=== PATIENT | female | born 1965 | race Caucasian/White ===

== ENCOUNTER → 2016-07-30 | Outpatient (CLI) | payer OTHER, BC ==
[~2016-07-30] MED LIST: ANASTROZOLE1 MG PO; CALCIUM 500 MG1 EACH PO; COCONUT OIL1000 MG PO; CYCLOBENZAPRINE5 MG PO; FLUOXETINE HCL20 M1 PO; HYDROCODON-ACE1 EAC7 PO; MS CONTIN,ORAMO60 MG PO; MS CONTIN100 MG PO; MYRBETRIQ25 MG PO; OMEPRAZOLE20 MG PO; ONDANSETRON HCL4 MG PO; PROBIOTIC1 EAC1 PO; VITAMIN D2000 UNIT PO; WELLBUTRIN75 MG PO
== END | disposition home or self-care (01) ==
LOC: RES 07-23 10:00
DX: R94.2 Abnormal results of pulmonary function studies (principal); J45.909 Unspecified asthma, uncomplicated; R06.02 Shortness of breath
CPT/HCPCS: 94060; 94726; 94729

== ENCOUNTER 2017-06-23 12:34 | Emergency (ER) | payer OTHER, BC ==
[~2017-06-23] VITALS: Ht 180.3 cm; Wt 90.7 kg
[2017-06-23 14:18] LABS: HEMATOCRIT 41.8 % (36.0-46.0); HEMOGLOBIN 14.1 G/DL (11.9-15.5); MCH 30.5 PG (29.0-34.0); MCHC 33.7 G/DL (30.0-36.0); MCV 90.5 FL (83-99); PLATELET COUNT 197 K/uL (156-360); RBC DIS.WIDTH-CV 12.4 % (11.8-14.6); RBC DIS.WIDTH-SD 40.8 % (39-53); RED BLOOD COUNT 4.62 M/uL (3.80-5.20); WHITE BLOOD COUNT 9.1 K/uL (4.1-10.2)
[2017-06-23 14:28] LABS: INTER. NORMALIZED RATIO 1.1
[2017-06-23 14:30] LABS: PTT 24.9 SEC (25-37)
[2017-06-23 14:31] LABS: ALBUMIN 4.1 g/dL (3.2-4.8); CHLORIDE 104 mEq/L (99-109); POTASSIUM 3.8 mEq/L (3.7-5.4); SODIUM 139 mEq/L (136-147)
[2017-06-23 14:33] LABS: GLUCOSE 86 mg/dL (70-99); TOTAL PROTEIN 7.4 g/dL (6.4-8.3)
[2017-06-23 14:35] LABS: TOTAL BILIRUBIN 1.2 mg/dL (0.0-1.0)
[2017-06-23 14:37] LABS: ALKALINE PHOSPHATASE 91 IU/L (3-129); CREATININE 0.8 mg/dL (0.6-1.3); GFR ESTIMATE (CALCULATED) > 59 mL/min/
[2017-06-23 14:38] LABS: UREA NITROGEN (BUN) 8 mg/dL (9-23)
[2017-06-23 14:39] LABS: AST (GOT) 35 IU/L (2-34)
[2017-06-23 14:40] LABS: ALT (GPT) 39 IU/L (3-49)
[2017-06-23 15:04] LABS: APPEARANCE CLEAR ((CLEAR)); BILIRUBIN NEGATIVE; BLOOD SMALL; COLOR YELLOW ((YELLOW)); GLUCOSE (STRIP) NEGATIVE; KETONES NEGATIVE; LEUKOCYTES SMALL; NITRITE NEGATIVE; PROTEIN (STRIP) NEGATIVE; SPECIFIC GRAVITY 1.013 (1.000-1.030); UROBILINOGEN 0.2 MG/DL (0.2-1.0)
[2017-06-23 15:11] LABS: BACTERIA NONE SEEN /HPF; EPITHELIAL CELLS RARE /HPF; MUCUS TRACE /LPF; RED BLOOD CELLS 0-5 /HPF (0-5); UCUL ADDED? YES
[2017-06-23] MEDS ORDERED: LEVAQUIN750 MG PO (20:12)
[2017-06-23] MEDS ORDERED: ZOFRAN4 MG PO (20:12)
[2017-06-23 21:03] VITALS: BP 136/76
== END 2017-06-23 21:04 | disposition home or self-care (01) ==
LOC: EME 12:34
DX: N39.0 Urinary tract infection, site not specified (principal); K21.9 Gastro-esophageal reflux disease without esophagitis; K58.0 Irritable bowel syndrome with diarrhea; J44.9 Chronic obstructive pulmonary disease, unspecified; M06.9 Rheumatoid arthritis, unspecified; G25.81 Restless legs syndrome; F41.9 Anxiety disorder, unspecified; I25.2 Old myocardial infarction; Z85.9 Personal history of malignant neoplasm, unspecified; Z92.21 Personal history of antineoplastic chemotherapy; Z88.0 Allergy status to penicillin
CPT/HCPCS: 74177; 80053; 81003; 85027; 85610; 85730; 87086; 93005; 99281; 99285; J2405; J3010; J7030

== ENCOUNTER 2017-08-29 18:53 | Emergency (ER) | payer OTHER, BC ==
[~2017-08-29] VITALS: Ht 180.3 cm; Wt 95.4 kg
[~2017-08-29 18:53] MED LIST changes: +LEVAQUIN750 MG PO; +ZOFRAN4 MG PO
[2017-08-29 20:04] LABS: HEMATOCRIT 36.9 % (36.0-46.0); HEMOGLOBIN 12.1 G/DL (11.9-15.5); MCHC 32.8 G/DL (30.0-36.0); MCV 91.3 FL (83-99); PLATELET COUNT 166 K/uL (156-360); RBC DIS.WIDTH-SD 40.2 % (39-53); RED BLOOD COUNT 4.04 M/uL (3.80-5.20); WHITE BLOOD COUNT 5.2 K/uL (4.1-10.2)
[2017-08-29 20:12] LABS: ALBUMIN 3.9 g/dL (3.2-4.8); CHLORIDE 106 mEq/L (99-109)
[2017-08-29 20:13] LABS: SODIUM 139 mEq/L (136-147)
[2017-08-29 20:14] LABS: APPEARANCE SL.HAZY ((CLEAR)); BILIRUBIN NEGATIVE; BLOOD NEGATIVE; COLOR YELLOW ((YELLOW)); GLUCOSE (STRIP) NEGATIVE; KETONES NEGATIVE; LEUKOCYTES LARGE; NITRITE NEGATIVE; PROTEIN (STRIP) 30; SPECIFIC GRAVITY 1.025 (1.000-1.030); UROBILINOGEN 0.2 MG/DL (0.2-1.0)
[2017-08-29 20:15] LABS: GLUCOSE 87 mg/dL (70-99); TOTAL PROTEIN 6.9 g/dL (6.4-8.3)
[2017-08-29 20:17] LABS: TOTAL BILIRUBIN 0.7 mg/dL (0.0-1.0)
[2017-08-29 20:18] LABS: ALKALINE PHOSPHATASE 95 IU/L (3-129); CREATININE 0.8 mg/dL (0.6-1.3); GFR ESTIMATE (CALCULATED) > 59 mL/min/
[2017-08-29 20:20] LABS: AST (GOT) 28 IU/L (2-34); UREA NITROGEN (BUN) 10 mg/dL (9-23)
[2017-08-29 20:21] LABS: ALT (GPT) 27 IU/L (3-49)
[2017-08-29 20:27] LABS: TROP-I INTERPRETATION NEGATIVE; TROPONIN-I 0.02 ng/mL (0.0-0.30)
[2017-08-29] MEDS ORDERED: ZITHROMAX250 MG PO (20:28)
[2017-08-29 20:37] LABS: BACTERIA NONE SEEN /HPF; EPITHELIAL CELLS RARE /HPF; HYALINE CASTS 0-5 /LPF; MUCUS TRACE /LPF; RED BLOOD CELLS 20-30 /HPF (0-5); UCUL ADDED? YES; WHITE BLOOD CELLS 40-50 /HPF (0-5)
[2017-08-29 22:34] VITALS: BP 101/63
== END 2017-08-29 22:36 | disposition home or self-care (01) ==
LOC: EME 18:53
PROVIDERS: Emergency Medicine Emergency Medical Services
DX: J01.30 Acute sphenoidal sinusitis, unspecified (principal); N39.0 Urinary tract infection, site not specified; J44.0 Chronic obstructive pulmonary disease with (acute) lower respiratory infection; J18.9 Pneumonia, unspecified organism; T40.601A Poisoning by unspecified narcotics, accidental (unintentional), initial encounter; G93.89 Other specified disorders of brain; R09.02 Hypoxemia; K21.9 Gastro-esophageal reflux disease without esophagitis; G25.81 Restless legs syndrome; M06.9 Rheumatoid arthritis, unspecified; K58.9 Irritable bowel syndrome, unspecified; G43.909 Migraine, unspecified, not intractable, without status migrainosus; R56.9 Unspecified convulsions; I25.2 Old myocardial infarction; F41.0 Panic disorder [episodic paroxysmal anxiety]; F41.9 Anxiety disorder, unspecified; Z87.891 Personal history of nicotine dependence; Z92.21 Personal history of antineoplastic chemotherapy; Z85.3 Personal history of malignant neoplasm of breast; Z88.0 Allergy status to penicillin
CPT/HCPCS: 70450; 71046; 80053; 81003; 84484; 85027; 87086 GA; 93005; 99281; 99285